=== PATIENT | female | born 1935 | race African-American/Black ===

== ENCOUNTER 2017-05-12 12:24 | Emergency (ER) | payer MEDICARE, MEDICAID ==
[~2017-05-12] VITALS: Ht 177.8 cm; Wt 102.6 kg
[2017-05-12 12:30] VITALS: BP 148/68
[2017-05-12] MEDS ORDERED: IBUPROFEN 600 MG TABLET PO ONE ×2 (12:53→13:00)
[2017-05-12] MEDS ORDERED: AMOX/CLAVULANATE 250 MG TABLET ONE (12:53)
[2017-05-12] MEDS ORDERED: AMOXICILLIN TRIHYDRATE 250 MG CAPSULE PO ONE (13:00)
--- NOTE | 2017-05-12 13:06 | NUR ---
Ambulnz eta [id number]
== END 2017-05-12 14:10 | disposition home or self-care (01) ==
LOC: ER 12:28
DX: H66.92 Otitis media, unspecified, left ear (principal); I10 Essential (primary) hypertension; I25.10 Atherosclerotic heart disease of native coronary artery without angina pectoris; M19.90 Unspecified osteoarthritis, unspecified site
CPT/HCPCS: 99283; A4606; Z7610

== ENCOUNTER 2019-04-02 13:12 | Inpatient (IN) | payer MEDICARE, MEDICAID ==
[~2019-04-02] VITALS: Ht 177.8 cm; Wt 86.2 kg
[2019-04-02 02:00] VITALS: BP 114/56
[2019-04-02] MEDS ORDERED: CLINDAMYCIN HCL 150 MG CAPSULE PO ONE ×2 (14:57→15:00)
[2019-04-02] MEDS ORDERED: HYDROCODONE/APAP 5/325MG 1 EACH TABLET ONE ×2 (14:58→17:23)
[2019-04-02] MEDS ORDERED: ONDANSETRON 4 MG TAB.RAPDIS ONE (14:58)
[2019-04-02] MEDS ORDERED: ONDANSETRON 4 MG TAB.RAPDIS SL ONE (15:00)
[2019-04-02] MEDS ORDERED: HYDROCODONE/APAP 5/325MG 1 EACH TABLET PO ONE ×2 (15:00→17:30)
[2019-04-02 15:58] LABS: BASOPHILS # (AUTO) 0.1 /CMM (0.0-0.2); BASOPHILS % (AUTO) 1.3 % (0.0-2.0); HEMATOCRIT 36 % (33-45); HEMOGLOBIN 11.4 g/dL (11.5-14.8); LYMPHOCYTES # (AUTO) 1.6 /CMM (0.8-4.8); LYMPHOCYTES % (AUTO) 20.9 % (20.0-44.0); MEAN CORPUSCULAR HGB CONC 32 g/dl (31.0-36.0); MEAN CORPUSCULAR VOLUME 80 fL (82-100); MONOCYTES # (AUTO) 0.8 /CMM (0.1-1.30); MONOCYTES % (AUTO) 11.1 % (2.0-12.0); NEUTROPHILS # (AUTO) 4.8 /CMM (1.8-8.9); NEUTROPHILS % (AUTO) 63.7 % (43.0-81.0); PLATELET COUNT (AUTO) 226 /CMM (150-450); WHITE BLOOD COUNT (AUTO) 7.6 K/uL (4.3-11.0)
[2019-04-02 16:08] LABS: CALCIUM, SERUM 9.1 mg/dL (8.5-10.1); CARBON DIOXIDE 30 mmol/L (21-32); CHLORIDE 98 mmol/L (98-107); CREATININE 2.1 mg/dL (0.6-1.3); GLUCOSE 98 mg/dL (74-106); POTASSIUM 5.2 mmol/L (3.5-5.1); SODIUM SERUM 132 mmol/L (136-145); UREA NITROGEN, BLOOD 35 mg/dL (7-18)
[2019-04-02 16:21] LABS: B-TYPE NATRIURETIC PEPTIDE 339 PG/ML (0-125)
[2019-04-02 18:00] VITALS: BP 138/58
[2019-04-02] MEDS ORDERED: RISP0.5T20 PO (18:31)
[2019-04-02] MEDS ORDERED: LACT10SO PO (18:31)
[2019-04-02] MEDS ORDERED: OXYB10TA2 PO (18:31)
[2019-04-02] MEDS ORDERED: BRIM5DRO3 EACHEYE (18:31)
[2019-04-02] MEDS ORDERED: METR-147 PO (18:31)
[2019-04-02] MEDS ORDERED: ATOR20TA PO (18:31)
[2019-04-02] MEDS ORDERED: DOCU250C88 PO (18:31)
[2019-04-02] MEDS ORDERED: FURO20TA4 PO (18:31)
[2019-04-02] MEDS ORDERED: CLOP75TA15 PO (18:31)
[2019-04-02] MEDS ORDERED: ONDA4TAB11 SL (18:31)
[2019-04-02] MEDS ORDERED: GABA-532 PO (18:31)
[2019-04-02] MEDS ORDERED: ISOS30TA6 PO (18:31)
[2019-04-02] MEDS ORDERED: MIRT15TA7 PO (18:31)
[2019-04-02] MEDS ORDERED: [UNRECOGNIZED DRUG - CODE] PO (18:31)
[2019-04-02] MEDS ORDERED: CARB15DR OP (18:31)
[2019-04-02] MEDS ORDERED: SPIR50TA5 PO (18:31)
[2019-04-02] MEDS ORDERED: METO200T49 PO (18:31)
[2019-04-02] MEDS ORDERED: LORA-259 PO (18:31)
[2019-04-02] MEDS ORDERED: LOSA100T31 PO (18:31)
[2019-04-02] MEDS ORDERED: TRAM50TA2 PO (18:31)
[2019-04-02] MEDS ORDERED: MAG-154 PO (18:31)
[2019-04-02] MEDS ORDERED: PANT40TA4 PO (18:31)
[2019-04-02 20:00] VITALS: BP 114/56
[2019-04-02] MEDS ORDERED: WARFARIN SODIUM 5 MG TABLET PO ONE (20:00)
[2019-04-02] MEDS: ENOXAPARIN SODIUM 100 MG/ML DISP.SYRIN SQ SCH (22:10)
[2019-04-03 04:00] VITALS: BP 125/78
[2019-04-03] MEDS ORDERED: LACTULOSE 10 G/15 ML UDC (PYXIS) PO PRN (08:30)
[2019-04-03] MEDS ORDERED: LORAZEPAM 1 MG TABLET PO PRN (08:30)
[2019-04-03] MEDS ORDERED: GUAIFENESIN/D-METHORPHAN HB 5 ML UDC PO PRN (08:30)
[2019-04-03] MEDS ORDERED: MAG HYDROX/AL HYDROX/SIMETH 30 ML UDC PO PRN (08:30)
[2019-04-03] MEDS ORDERED: TRAMADOL HCL 50 MG TABLET PO PRN (08:30)
[2019-04-03] MEDS: PANTOPRAZOLE 40 MG TABLET.DR PO SCH (08:35)
[2019-04-03] MEDS: DOCUSATE SODIUM 250 MG CAPSULE PO SCH (08:36)
[2019-04-03] MEDS: FUROSEMIDE 20 MG TABLET PO SCH (08:36)
[2019-04-03] MEDS: OXYBUTYNIN CHLORIDE ER 5 MG TAB PO SCH (08:36)
[2019-04-03] MEDS: SPIRONOLACTONE 25 MG TABLET PO SCH ×2 (08:36→16:15)
[2019-04-03] MEDS: ISOSORBIDE MONONITRATE (30MG) 30 MG TAB.SR.24H PO SCH (08:46)
[2019-04-03] MEDS: METOPROLOL SUCCINATE 50 MG TAB.SR.24H PO SCH (08:47)
[2019-04-03] MEDS: LOSARTAN POTASSIUM 50 MG TABLET PO SCH (08:47)
[2019-04-03] MEDS: GABAPENTIN 100 MG CAPSULE PO SCH ×3 (08:47→16:14)
[2019-04-03] MEDS ORDERED: CLOPIDOGREL BISULFATE 75 MG TABLET PO SCH (09:00)
[2019-04-03] MEDS: BRIMONIDINE TARTRATE OPHT SOLN 5 ML BOTTLE EACHEYE SCH ×2 (09:18→16:14)
[2019-04-03] MEDS: CARBOXYMETHYLCELLULOSE SODIUM 0.4 ML DROPERETTE EACHEYE SCH (09:19)
[2019-04-03 12:00] VITALS: BP 118/64
[2019-04-03 20:00] VITALS: BP 129/65
[2019-04-03] MEDS ORDERED: OXYB5TAB4 PO (20:34)
[2019-04-03] MEDS ORDERED: RISP0.5T20 PO (20:34)
[2019-04-03] MEDS ORDERED: MIRT15TA7 PO (20:34)
[2019-04-03] MEDS: ENOXAPARIN SODIUM 100 MG/ML DISP.SYRIN SQ SCH (21:05)
[2019-04-03] MEDS: ATORVASTATIN 10 MG TABLET PO SCH (21:07)
[2019-04-03] MEDS: risperiDONE 0.25 MG TABLET PO SCH (21:07)
[2019-04-03] MEDS: MIRTAZAPINE 15 MG TABLET PO SCH (21:07)
[2019-04-03] MEDS ORDERED: TRAMADOL HCL 50 MG TABLET PO ONE (22:00)
[2019-04-04 04:00] VITALS: BP 121/50
[2019-04-04] MEDS: TRAMADOL HCL 50 MG TABLET PO PRN (04:44)
[2019-04-04 08:00] VITALS: BP 133/75
[2019-04-04] MEDS: risperiDONE 0.25 MG TABLET PO SCH ×2 (08:48→16:33)
[2019-04-04] MEDS: FUROSEMIDE 20 MG TABLET PO SCH (08:48)
[2019-04-04] MEDS: GABAPENTIN 100 MG CAPSULE PO SCH ×3 (08:48→16:36)
[2019-04-04] MEDS: OXYBUTYNIN CHLORIDE ER 5 MG TAB PO SCH (08:49)
[2019-04-04] MEDS: PANTOPRAZOLE 40 MG TABLET.DR PO SCH (08:49)
[2019-04-04] MEDS: DOCUSATE SODIUM 250 MG CAPSULE PO SCH (08:49)
[2019-04-04] MEDS: ISOSORBIDE MONONITRATE (30MG) 30 MG TAB.SR.24H PO SCH (08:50)
[2019-04-04] MEDS: METOPROLOL SUCCINATE 50 MG TAB.SR.24H PO SCH (08:50)
[2019-04-04] MEDS: LOSARTAN POTASSIUM 50 MG TABLET PO SCH (08:51)
[2019-04-04] MEDS: SPIRONOLACTONE 25 MG TABLET PO SCH ×2 (08:51→16:33)
[2019-04-04] MEDS: BRIMONIDINE TARTRATE OPHT SOLN 5 ML BOTTLE EACHEYE SCH ×2 (08:52→16:33)
[2019-04-04] MEDS: CARBOXYMETHYLCELLULOSE SODIUM 0.4 ML DROPERETTE EACHEYE SCH (08:52)
[2019-04-04] MEDS: CEFAZOLIN 1 GM in IV D5W 50 ML IV SCH ×2 (09:00→17:23)
[2019-04-04] MEDS: CLOTRIMAZOLE 1% 15 GM TUBE TP SCH ×2 (10:51→16:34)
[2019-04-04 12:00] VITALS: BP 139/59
[2019-04-04] MEDS: Z GUARD REMEDY 2 OZ OINT TP SCH (14:05)
[2019-04-04] MEDS: MUPIROCIN OINT 2% 22 GM TUBE TP SCH ×2 (14:06→20:10)
[2019-04-04 16:00] VITALS: BP 139/59
[2019-04-04] MEDS: RIVAROXABAN 15 MG TABLET PO SCH (16:34)
[2019-04-04] MEDS ORDERED: WARFARIN SODIUM 5 MG TABLET PO SCH (17:00)
[2019-04-04] MEDS ORDERED: FEE PK DOSING 1 MIN EA MC ONE (18:49)
[2019-04-04] MEDS ORDERED: VANCOMYCIN 1.25 GM in IV D5W 250 ML IV ONE (19:00)
[2019-04-04 20:00] VITALS: BP 148/72
[2019-04-04] MEDS: Z GUARD REMEDY 2 OZ OINT TP PRN (20:10)
[2019-04-04 20:40] LABS: BASOPHILS # (AUTO) 0.1 /CMM (0.0-0.2); EOSINOPHILS % (AUTO) 2.9 % (0.0-6.0); HEMATOCRIT 36 % (33-45); HEMOGLOBIN 11.5 g/dL (11.5-14.8); LYMPHOCYTES # (AUTO) 1.1 /CMM (0.8-4.8); LYMPHOCYTES % (AUTO) 15.5 % (20.0-44.0); MEAN CORPUSCULAR HGB CONC 32 g/dl (31.0-36.0); MEAN CORPUSCULAR VOLUME 79 fL (82-100); MONOCYTES # (AUTO) 0.7 /CMM (0.1-1.30); MONOCYTES % (AUTO) 10.2 % (2.0-12.0); NEUTROPHILS % (AUTO) 70.4 % (43.0-81.0); PLATELET COUNT (AUTO) 213 /CMM (150-450); RED BLOOD CELL COUNT(AUTO) 4.54 MIL/uL (4.0-5.2)
[2019-04-04 20:44] LABS: CALCIUM, SERUM 8.9 mg/dL (8.5-10.1); CARBON DIOXIDE 32 mmol/L (21-32); CHLORIDE 102 mmol/L (98-107); CREATININE 1.7 mg/dL (0.6-1.3); GLUCOSE 108 mg/dL (74-106); POTASSIUM 5.6 mmol/L (3.5-5.1); SODIUM SERUM 137 mmol/L (136-145); UREA NITROGEN, BLOOD 33 mg/dL (7-18)
[2019-04-04] MEDS: ATORVASTATIN 10 MG TABLET PO SCH (22:33)
[2019-04-04] MEDS: MIRTAZAPINE 15 MG TABLET PO SCH (22:34)
[2019-04-05] MEDS: CEFAZOLIN 1 GM in IV D5W 50 ML IV SCH ×3 (00:03→16:37)
[2019-04-05 04:00] VITALS: BP 131/71
[2019-04-05 08:00] VITALS: BP 140/72
[2019-04-05] MEDS: BRIMONIDINE TARTRATE OPHT SOLN 5 ML BOTTLE EACHEYE SCH ×2 (08:33→16:37)
[2019-04-05] MEDS: FUROSEMIDE 20 MG TABLET PO SCH (08:34)
[2019-04-05] MEDS: GABAPENTIN 100 MG CAPSULE PO SCH ×3 (08:34→16:37)
[2019-04-05] MEDS: SPIRONOLACTONE 25 MG TABLET PO SCH ×2 (08:34→16:37)
[2019-04-05] MEDS: LOSARTAN POTASSIUM 50 MG TABLET PO SCH (08:35)
[2019-04-05] MEDS: DOCUSATE SODIUM 250 MG CAPSULE PO SCH (08:35)
[2019-04-05] MEDS: ISOSORBIDE MONONITRATE (30MG) 30 MG TAB.SR.24H PO SCH (08:35)
[2019-04-05] MEDS: PANTOPRAZOLE 40 MG TABLET.DR PO SCH (08:35)
[2019-04-05] MEDS: risperiDONE 0.25 MG TABLET PO SCH ×2 (08:35→16:38)
[2019-04-05] MEDS: OXYBUTYNIN CHLORIDE ER 5 MG TAB PO SCH (08:35)
[2019-04-05] MEDS: METOPROLOL SUCCINATE 50 MG TAB.SR.24H PO SCH (08:35)
[2019-04-05] MEDS: MUPIROCIN OINT 2% 22 GM TUBE TP SCH ×2 (08:36→20:35)
[2019-04-05] MEDS: Z GUARD REMEDY 2 OZ OINT TP SCH (08:37)
[2019-04-05] MEDS: CLOTRIMAZOLE 1% 15 GM TUBE TP SCH ×2 (08:37→16:37)
[2019-04-05] MEDS: CARBOXYMETHYLCELLULOSE SODIUM 0.4 ML DROPERETTE EACHEYE SCH (08:42)
[2019-04-05] MEDS: RIVAROXABAN 15 MG TABLET PO SCH ×2 (08:46→16:39)
[2019-04-05 12:00] VITALS: BP 128/69
[2019-04-05 15:33] LABS: CALCIUM, SERUM 8.9 mg/dL (8.5-10.1); CARBON DIOXIDE 31 mmol/L (21-32); CHLORIDE 102 mmol/L (98-107); CREATININE 1.6 mg/dL (0.6-1.3); GLUCOSE 122 mg/dL (74-106); POTASSIUM 5.1 mmol/L (3.5-5.1); SODIUM SERUM 136 mmol/L (136-145); UREA NITROGEN, BLOOD 30 mg/dL (7-18)
[2019-04-05 20:00] VITALS: BP 114/55
[2019-04-05] MEDS: MIRTAZAPINE 15 MG TABLET PO SCH (21:08)
[2019-04-05] MEDS: ATORVASTATIN 10 MG TABLET PO SCH (21:09)
[2019-04-06] MEDS: CEFAZOLIN 1 GM in IV D5W 50 ML IV SCH ×3 (00:04→16:49)
[2019-04-06 04:00] VITALS: BP 136/58
[2019-04-06 07:48] LABS: CALCIUM, SERUM 9.3 mg/dL (8.5-10.1); CARBON DIOXIDE 26 mmol/L (21-32); CHLORIDE 102 mmol/L (98-107); CREATININE 1.4 mg/dL (0.6-1.3); GLUCOSE 100 mg/dL (74-106); POTASSIUM 4.7 mmol/L (3.5-5.1); SODIUM SERUM 136 mmol/L (136-145); UREA NITROGEN, BLOOD 26 mg/dL (7-18)
[2019-04-06 08:00] VITALS: BP 146/75
[2019-04-06] MEDS ORDERED: VANCOMYCIN 1.25 GM in IV D5W 250 ML IV SCH (08:00)
[2019-04-06] MEDS: GABAPENTIN 100 MG CAPSULE PO SCH ×3 (08:45→16:21)
[2019-04-06] MEDS: LOSARTAN POTASSIUM 50 MG TABLET PO SCH (08:45)
[2019-04-06] MEDS: DOCUSATE SODIUM 250 MG CAPSULE PO SCH (08:45)
[2019-04-06] MEDS: RIVAROXABAN 15 MG TABLET PO SCH ×2 (08:46→16:20)
[2019-04-06] MEDS: OXYBUTYNIN CHLORIDE ER 5 MG TAB PO SCH (08:47)
[2019-04-06] MEDS: ISOSORBIDE MONONITRATE (30MG) 30 MG TAB.SR.24H PO SCH (08:47)
[2019-04-06] MEDS: PANTOPRAZOLE 40 MG TABLET.DR PO SCH (08:47)
[2019-04-06] MEDS: risperiDONE 0.25 MG TABLET PO SCH ×2 (08:47→16:21)
[2019-04-06] MEDS: SPIRONOLACTONE 25 MG TABLET PO SCH ×2 (08:47→16:19)
[2019-04-06] MEDS: FUROSEMIDE 20 MG TABLET PO SCH (08:48)
[2019-04-06] MEDS: METOPROLOL SUCCINATE 50 MG TAB.SR.24H PO SCH (08:48)
[2019-04-06] MEDS: MUPIROCIN OINT 2% 22 GM TUBE TP SCH ×2 (08:54→21:23)
[2019-04-06] MEDS: CLOTRIMAZOLE 1% 15 GM TUBE TP SCH ×2 (08:54→16:23)
[2019-04-06] MEDS: BRIMONIDINE TARTRATE OPHT SOLN 5 ML BOTTLE EACHEYE SCH ×2 (08:56→16:22)
[2019-04-06] MEDS: Z GUARD REMEDY 2 OZ OINT TP PRN ×3 (08:57→09:15)
[2019-04-06] MEDS: CARBOXYMETHYLCELLULOSE SODIUM 0.4 ML DROPERETTE EACHEYE SCH (09:51)
[2019-04-06] MEDS: Z GUARD REMEDY 2 OZ OINT TP SCH (09:51)
[2019-04-06 14:00] VITALS: BP 138/72
[2019-04-06] MEDS: TRAMADOL HCL 50 MG TABLET PO PRN (15:28)
[2019-04-06 16:00] VITALS: BP 125/71
[2019-04-06 20:00] VITALS: BP 136/69
[2019-04-06] MEDS: MIRTAZAPINE 15 MG TABLET PO SCH (21:23)
[2019-04-06] MEDS: ATORVASTATIN 10 MG TABLET PO SCH (21:23)
[2019-04-07] MEDS: TRAMADOL HCL 50 MG TABLET PO PRN ×2 (02:14→14:03)
[2019-04-07] MEDS: CEFAZOLIN 1 GM in IV D5W 50 ML IV SCH ×2 (02:14→08:55)
[2019-04-07 04:00] VITALS: BP 143/61
[2019-04-07 07:02] LABS: CALCIUM, SERUM 9.1 mg/dL (8.5-10.1); CARBON DIOXIDE 32 mmol/L (21-32); CHLORIDE 104 mmol/L (98-107); CREATININE 1.5 mg/dL (0.6-1.3); GLUCOSE 103 mg/dL (74-106); POTASSIUM 4.6 mmol/L (3.5-5.1); SODIUM SERUM 140 mmol/L (136-145); UREA NITROGEN, BLOOD 26 mg/dL (7-18)
[2019-04-07 08:00] VITALS: BP 126/72
[2019-04-07] MEDS: GABAPENTIN 100 MG CAPSULE PO SCH ×2 (08:06→13:38)
[2019-04-07] MEDS: FUROSEMIDE 20 MG TABLET PO SCH (08:06)
[2019-04-07] MEDS: OXYBUTYNIN CHLORIDE ER 5 MG TAB PO SCH (08:06)
[2019-04-07] MEDS: DOCUSATE SODIUM 250 MG CAPSULE PO SCH (08:06)
[2019-04-07] MEDS: SPIRONOLACTONE 25 MG TABLET PO SCH (08:12)
[2019-04-07] MEDS: PANTOPRAZOLE 40 MG TABLET.DR PO SCH (08:12)
[2019-04-07] MEDS: risperiDONE 0.25 MG TABLET PO SCH (08:12)
[2019-04-07] MEDS: BRIMONIDINE TARTRATE OPHT SOLN 5 ML BOTTLE EACHEYE SCH (08:16)
[2019-04-07] MEDS: ISOSORBIDE MONONITRATE (30MG) 30 MG TAB.SR.24H PO SCH (08:50)
[2019-04-07] MEDS: METOPROLOL SUCCINATE 50 MG TAB.SR.24H PO SCH (08:50)
[2019-04-07] MEDS: LOSARTAN POTASSIUM 50 MG TABLET PO SCH (08:51)
[2019-04-07] MEDS: RIVAROXABAN 15 MG TABLET PO SCH (08:51)
[2019-04-07] MEDS: CLOTRIMAZOLE 1% 15 GM TUBE TP SCH (08:54)
[2019-04-07] MEDS: Z GUARD REMEDY 2 OZ OINT TP SCH (08:54)
[2019-04-07] MEDS: MUPIROCIN OINT 2% 22 GM TUBE TP SCH (08:54)
[2019-04-07] MEDS ORDERED: VANCOMYCIN 1.25 GM in IV D5W 250 ML IV SCH (10:00)
[2019-04-07 12:00] VITALS: BP 136/81
[2019-04-07] MEDS ORDERED: INFLUENZA VACCINE 2019-20 0.5 ML DISP.SYRIN IM ONE (14:00)
[2019-04-08] MEDS ORDERED: POLYVINYL ALCOHOL/POVIDONE 0.4 ML DROPERETTE EACHEYE SCH (09:00)
== END 2019-04-07 16:30 | DRG 300 ==
LOC: ER 13:16 → MEDSG1 17:18
PROVIDERS: ADMIT Internal Medicine; ATTEND Internal Medicine
PROC: 05H633Z Insertion of Infusion Device into Left Subclavian Vein, Percutaneous Approach (ICD-10-PCS; principal; 2019-04-04)
DX: I82.432 Acute embolism and thrombosis of left popliteal vein (principal); I13.0 Hypertensive heart and chronic kidney disease with heart failure and stage 1 through stage 4 chronic kidney disease, or unspecified chronic kidney disease; L03.116 Cellulitis of left lower limb; I50.22 Chronic systolic (congestive) heart failure; I25.10 Atherosclerotic heart disease of native coronary artery without angina pectoris; E78.5 Hyperlipidemia, unspecified; L03.032 Cellulitis of left toe; E66.01 Morbid (severe) obesity due to excess calories; E87.5 Hyperkalemia; M06.9 Rheumatoid arthritis, unspecified; M19.90 Unspecified osteoarthritis, unspecified site; M20.42 Other hammer toe(s) (acquired), left foot; Z95.5 Presence of coronary angioplasty implant and graft; Z68.27 Body mass index [BMI] 27.0-27.9, adult; F41.9 Anxiety disorder, unspecified; M79.672 Pain in left foot; N18.3 Chronic kidney disease, stage 3 (moderate); L97.529 Non-pressure chronic ulcer of other part of left foot with unspecified severity; M81.0 Age-related osteoporosis without current pathological fracture
CPT/HCPCS: 36415; 71045-TC; 73630-TC; 80048-TC; 80202-TC; 83880; 84132-TC; 85025-TC; 85610-TC; 85730-TC; 87081-TC; 93970-TC; G0378; J0690; J1650; J3370; J7030; J7040; J7060; Q0162; Q2036

== ENCOUNTER 2023-05-23 20:15 | Inpatient (IN) | payer MEDICARE, OTHER ==
[~2023-05-23] VITALS: Ht 175.3 cm; Wt 91.7 kg
[~2023-05-23 20:15] MED LIST: ATOR20TA PO; BRIM5DRO3 EACHEYE; CARB15DR EACHEYE; CLOP75TA15 PO; DOCU250C21 PO; FURO20TA4 PO; GABA-532 PO; ISOS30TA86 PO; LACT10SO3 PO; LORA-259 PO; LOSA100T31 PO; MAG-154 PO; METO200T49 PO; MIRT-90 PO; OXYB-58 PO; PANT40TA49 PO; RISP0.5T65 PO; SPIR50TA5 PO; TRAM50TA2 PO; [UNRECOGNIZED DRUG - CODE] PO
[2023-05-23] MEDS ORDERED: ACETAMINOPHEN ES 500 MG TABLET ONE (20:44)
[2023-05-23] MEDS: IV NS 0.9% 500 ML BAG IV ONE (20:53)
[2023-05-23] MEDS: ACETAMINOPHEN ES 500 MG TABLET PO ONE (20:53)
[2023-05-23 21:08] LABS: BASOPHILS # (AUTO) 0.1 K/uL (0.0-0.2); BASOPHILS % (AUTO) 1.1 % (0.0-2.0); EOSINOPHILS # (AUTO) 0.2 K/uL (0.0-0.7); EOSINOPHILS % (AUTO) 2.7 % (0.0-6.0); HEMATOCRIT 38 % (33-45); LYMPHOCYTES # (AUTO) 1.9 K/uL (0.8-4.8); LYMPHOCYTES % (AUTO) 27.2 % (20.0-44.0); MEAN CORPUSCULAR HEMOGLOBIN 27 PG (26.0-33.0); MEAN CORPUSCULAR HGB CONC 32 g/dl (31.0-36.0); MEAN CORPUSCULAR VOLUME 84 fL (82-100); MONOCYTES # (AUTO) 0.7 K/uL (0.1-1.30); MONOCYTES % (AUTO) 10.4 % (2.0-12.0); NEUTROPHILS % (AUTO) 58.6 % (43.0-81.0); PLATELET COUNT (AUTO) 196 K/uL (150-450); RED CELL DISTRIBUTION WIDTH 14.8 % (11.5-15.0); WHITE BLOOD COUNT (AUTO) 6.8 K/uL (4.3-11.0)
[2023-05-23 21:22] LABS: CALCIUM, SERUM 8.9 mg/dL (8.5-10.1); CARBON DIOXIDE 27 mmol/L (21-32); CHLORIDE 104 mmol/L (98-107); CREATININE 2.7 mg/dL (0.6-1.3); GLUCOSE 79 mg/dL (74-106); POTASSIUM 4.4 mmol/L (3.5-5.1); SODIUM SERUM 136 mmol/L (136-145); UREA NITROGEN, BLOOD 69 mg/dL (7-18)
[2023-05-23 21:29] LABS: ALANINE AMINOTRANSFERASE 12 U/L (12-78); ALBUMIN 3.4 g/dL (3.4-5.0); ALKALINE PHOSPHATASE 99 U/L (46-116); ASPARTATE AMINOTRANSFERASE 11 U/L (15-37); BILIRUBIN,TOTAL 0.2 mg/dL (0.2-1.0); TOTAL PROTEIN, SERUM 7.5 g/dL (6.4-8.2)
[2023-05-23 22:28] LABS: APPEARANCE,URINE SLIGHTLY CLOUDY (CLEAR); BILIRUBIN,URINE NEGATIVE (NEGATIVE); BLOOD, URINE NEGATIVE Ery/uL (NEGATIVE); COLOR,URINE YELLOW (YELLOW); KETONES,URINE NEGATIVE (NEGATIVE); LEUKOCYTE ESTERASE ,URINE 1+ (NEGATIVE); NITRITE, URINE NEGATIVE (NEGATIVE); PH,URINE 5.5 (5.0-8.0); PROTEIN,URINE NEGATIVE (NEGATIVE); UGLUCOSE TRACE mg/dL (NEGATIVE); UROBILINOGEN,URINE 0.2 EU/dL (0.2)
[2023-05-23 22:32] LABS: ADD URINE CULTURE YES; BACTERIA,URINE Few /HPF (None Seen); RBC,URINE 0-2 /HPF (0-2); SQUAMOUS EPITHELIAL CELL,UR Rare /HPF (None Seen)
[2023-05-23] MEDS: CEFTRIAXONE 1GM BAG (ER ONLY) 50 ML IV ONE (23:43)
[2023-05-24] MEDS ORDERED: Medication Not On Formulary EA (Lactulose (Duphalac) 30 ML) PO SCH
[2023-05-24] MEDS ORDERED: ZOLPIDEM TARTRATE 5 MG TABLET PO PRN
[2023-05-24] MEDS ORDERED: Z GUARD REMEDY 4 OZ OINT TP PRN
[2023-05-24] MEDS ORDERED: ONDANSETRON HCL/PF 4 MG/2 ML VIAL IVP PRN
[2023-05-24] MEDS ORDERED: MAG HYDROX/AL HYDROX/SIMETH 30 ML UDC PO PRN
[2023-05-24] MEDS ORDERED: BENZONATATE 100 MG CAPSULE PO PRN
[2023-05-24 03:08] VITALS: BP 145/75; TEMP 97.9; O2SAT 98
[2023-05-24] MEDS: IV NS 0.9% 1,000 ML IV PRN (03:32)
[2023-05-24 04:00] VITALS: BP 127/69; TEMP 97.6; O2SAT 96
[2023-05-24 07:26] LABS: BASOPHILS # (AUTO) 0.1 K/uL (0.0-0.2); BASOPHILS % (AUTO) 0.8 % (0.0-2.0); EOSINOPHILS # (AUTO) 0.2 K/uL (0.0-0.7); EOSINOPHILS % (AUTO) 2.5 % (0.0-6.0); HEMATOCRIT 35 % (33-45); HEMOGLOBIN 11.3 g/dL (11.5-14.8); LYMPHOCYTES # (AUTO) 1.4 K/uL (0.8-4.8); LYMPHOCYTES % (AUTO) 19.4 % (20.0-44.0); MEAN CORPUSCULAR HEMOGLOBIN 27 PG (26.0-33.0); MEAN CORPUSCULAR HGB CONC 32 g/dl (31.0-36.0); MEAN CORPUSCULAR VOLUME 83 fL (82-100); MONOCYTES # (AUTO) 0.7 K/uL (0.1-1.30); MONOCYTES % (AUTO) 10.1 % (2.0-12.0); NEUTROPHILS # (AUTO) 4.8 K/uL (1.8-8.9); NEUTROPHILS % (AUTO) 67.2 % (43.0-81.0); PLATELET COUNT (AUTO) 180 K/uL (150-450); RED BLOOD CELL COUNT(AUTO) 4.25 MIL/uL (4.0-5.2); RED CELL DISTRIBUTION WIDTH 14.7 % (11.5-15.0); WHITE BLOOD COUNT (AUTO) 7.2 K/uL (4.3-11.0)
[2023-05-24 07:41] LABS: CALCIUM, SERUM 8.8 mg/dL (8.5-10.1); CARBON DIOXIDE 25 mmol/L (21-32); CHLORIDE 109 mmol/L (98-107); CREATININE 2.5 mg/dL (0.6-1.3); GLUCOSE 94 mg/dL (74-106); MAGNESIUM 1.6 mg/dL (1.8-2.4); PHOSPHORUS 3.7 mg/dL (2.5-4.9); POTASSIUM 3.9 mmol/L (3.5-5.1); SODIUM SERUM 141 mmol/L (136-145); UREA NITROGEN, BLOOD 68 mg/dL (7-18)
[2023-05-24 08:00] VITALS: BP 125/64; TEMP 97.6; O2SAT 98
[2023-05-24] MEDS: risperiDONE 0.25 MG TABLET PO SCH (08:31)
[2023-05-24] MEDS: DOCUSATE SODIUM 250 MG CAPSULE PO SCH (08:31)
[2023-05-24] MEDS: PANTOPRAZOLE 40 MG TABLET.DR PO SCH (08:32)
[2023-05-24] MEDS: GABAPENTIN 100 MG CAPSULE PO SCH (08:32)
[2023-05-24] MEDS: CLOPIDOGREL BISULFATE 75 MG TABLET PO SCH (08:32)
[2023-05-24] MEDS: ISOSORBIDE MONONITRATE (30MG) 30 MG TAB.SR.24H PO SCH (08:32)
[2023-05-24] MEDS: METOPROLOL SUCCINATE 50 MG TAB.SR.24H PO SCH (08:33)
[2023-05-24] MEDS ORDERED: APIX2.5T PO (08:40)
[2023-05-24] MEDS ORDERED: KETO15CR2 TP (08:40)
[2023-05-24] MEDS ORDERED: MIRT-91 PO (08:40)
[2023-05-24] MEDS ORDERED: OLME20TA23 PO (08:40)
[2023-05-24] MEDS ORDERED: EMPA10TA PO (08:40)
[2023-05-24] MEDS ORDERED: SERT50TA PO (08:40)
[2023-05-24] MEDS ORDERED: DEEP SEA 0.65% BNOSTRILS (08:40)
[2023-05-24] MEDS ORDERED: RISP0.5T65 PO (08:40)
[2023-05-24] MEDS ORDERED: ACET-868 PO (08:40)
[2023-05-24] MEDS ORDERED: DIPH1TAB PO (08:40)
[2023-05-24] MEDS ORDERED: SODI10PO PO (08:40)
[2023-05-24] MEDS: MAGNESIUM OXIDE 400 MG TABLET PO ONE (10:20)
[2023-05-24 16:00] VITALS: BP 109/63; TEMP 97.7; O2SAT 96
[2023-05-24] MEDS: BRIMONIDINE TARTRATE OPHT SOLN 5 ML BOTTLE EACHEYE SCH (17:08)
[2023-05-24] MEDS: POLYVINYL ALCOHOL 15 ML BOTTLE OP SCH (17:25)
[2023-05-24 20:00] VITALS: BP 102/61; TEMP 97.7; O2SAT 98
[2023-05-24] MEDS: ATORVASTATIN 10 MG TABLET PO SCH (21:19)
[2023-05-24] MEDS: MIRTAZAPINE 15 MG TABLET PO SCH (21:19)
[2023-05-24] MEDS: CEFTRIAXONE 1 G in IV D5W 50 ML IV SCH (21:19)
[2023-05-24] MEDS: MAGNESIUM HYDROXIDE 30 ML UDC PO PRN (21:24)
[2023-05-25 04:00] VITALS: BP 114/60; TEMP 98.5; O2SAT 98
[2023-05-25 07:06] LABS: BASOPHILS # (AUTO) 0.1 K/uL (0.0-0.2); BASOPHILS % (AUTO) 0.9 % (0.0-2.0); EOSINOPHILS # (AUTO) 0.2 K/uL (0.0-0.7); EOSINOPHILS % (AUTO) 3.5 % (0.0-6.0); HEMATOCRIT 32 % (33-45); HEMOGLOBIN 10.5 g/dL (11.5-14.8); LYMPHOCYTES # (AUTO) 1.7 K/uL (0.8-4.8); LYMPHOCYTES % (AUTO) 25.1 % (20.0-44.0); MEAN CORPUSCULAR HEMOGLOBIN 27 PG (26.0-33.0); MEAN CORPUSCULAR HGB CONC 33 g/dl (31.0-36.0); MEAN CORPUSCULAR VOLUME 83 fL (82-100); MONOCYTES # (AUTO) 0.8 K/uL (0.1-1.30); MONOCYTES % (AUTO) 11.2 % (2.0-12.0); NEUTROPHILS % (AUTO) 59.3 % (43.0-81.0); PLATELET COUNT (AUTO) 167 K/uL (150-450); RED BLOOD CELL COUNT(AUTO) 3.84 MIL/uL (4.0-5.2); RED CELL DISTRIBUTION WIDTH 14.6 % (11.5-15.0); WHITE BLOOD COUNT (AUTO) 6.7 K/uL (4.3-11.0)
[2023-05-25 08:00] VITALS: BP 123/60; TEMP 98.4; O2SAT 91
[2023-05-25 08:06] LABS: ALANINE AMINOTRANSFERASE 13 U/L (12-78); ALBUMIN 2.7 g/dL (3.4-5.0); ALKALINE PHOSPHATASE 82 U/L (46-116); ASPARTATE AMINOTRANSFERASE 10 U/L (15-37); BILIRUBIN,TOTAL 0.2 mg/dL (0.2-1.0); CALCIUM, SERUM 8.7 mg/dL (8.5-10.1); CARBON DIOXIDE 26 mmol/L (21-32); CHLORIDE 110 mmol/L (98-107); CREATININE 2.5 mg/dL (0.6-1.3); GLUCOSE 87 mg/dL (74-106); MAGNESIUM 1.8 mg/dL (1.8-2.4); PHOSPHORUS 3.5 mg/dL (2.5-4.9); POTASSIUM 4.5 mmol/L (3.5-5.1); SODIUM SERUM 141 mmol/L (136-145); TOTAL PROTEIN, SERUM 6.1 g/dL (6.4-8.2); UREA NITROGEN, BLOOD 61 mg/dL (7-18)
[2023-05-25 08:09] LABS: CREATINE KINASE, TOTAL 47 U/L (26-192)
[2023-05-25] MEDS: ACETAMINOPHEN 325 MG TABLET PO PRN (16:30)
[2023-05-25 18:16] VITALS: BP 104/59; TEMP 98.2; O2SAT 95
[2023-05-26 04:00] VITALS: BP 128/75; TEMP 98.5; O2SAT 97
[2023-05-26 06:11] LABS: PTH, INTACT 67 pg/mL (15-65)
[2023-05-26 06:52] LABS: BASOPHILS # (AUTO) 0.1 K/uL (0.0-0.2); BASOPHILS % (AUTO) 0.8 % (0.0-2.0); EOSINOPHILS # (AUTO) 0.2 K/uL (0.0-0.7); EOSINOPHILS % (AUTO) 2.7 % (0.0-6.0); HEMATOCRIT 35 % (33-45); HEMOGLOBIN 10.9 g/dL (11.5-14.8); LYMPHOCYTES # (AUTO) 1.3 K/uL (0.8-4.8); LYMPHOCYTES % (AUTO) 18.3 % (20.0-44.0); MEAN CORPUSCULAR HEMOGLOBIN 27 PG (26.0-33.0); MEAN CORPUSCULAR HGB CONC 32 g/dl (31.0-36.0); MEAN CORPUSCULAR VOLUME 85 fL (82-100); MONOCYTES % (AUTO) 13.1 % (2.0-12.0); NEUTROPHILS # (AUTO) 4.8 K/uL (1.8-8.9); NEUTROPHILS % (AUTO) 65.1 % (43.0-81.0); PLATELET COUNT (AUTO) 163 K/uL (150-450); RED BLOOD CELL COUNT(AUTO) 4.07 MIL/uL (4.0-5.2); RED CELL DISTRIBUTION WIDTH 14.9 % (11.5-15.0); WHITE BLOOD COUNT (AUTO) 7.4 K/uL (4.3-11.0)
[2023-05-26 07:05] LABS: CALCIUM, SERUM 8.9 mg/dL (8.5-10.1); CARBON DIOXIDE 30 mmol/L (21-32); CHLORIDE 107 mmol/L (98-107); CREATININE 2.3 mg/dL (0.6-1.3); GLUCOSE 88 mg/dL (74-106); MAGNESIUM 1.9 mg/dL (1.8-2.4); PHOSPHORUS 3.1 mg/dL (2.5-4.9); POTASSIUM 4.7 mmol/L (3.5-5.1); SODIUM SERUM 141 mmol/L (136-145); UREA NITROGEN, BLOOD 56 mg/dL (7-18)
[2023-05-26 08:00] VITALS: BP 146/131; TEMP 97.5; O2SAT 97
[2023-05-26] MEDS ORDERED: CEPH250C PO (13:58)
[2023-05-26 16:00] VITALS: BP 123/79; TEMP 98.1; O2SAT 96
[2023-05-28 15:08] LABS: *SPE A/G RATIO 1.1 (0.7-1.7); *SPE ALBUMIN 2.8 g/dL (2.9-4.4); *SPE ALPHA-1-GLOBULIN 0.2 g/dL (0.0-0.4); *SPE ALPHA-2-GLOBULIN 0.6 g/dL (0.4-1.0); *SPE BETA GLOBULIN 0.8 g/dL (0.7-1.3); *SPE GLOBULIN, TOTAL 2.6 g/dL (2.2-3.9); *SPE M-SPIKE Not Observed g/dL (Not Observed); *SPE PROTEIN TOTAL 5.4 g/dL (6.0-8.5); *SPEGAMMA GLOBULIN 0.9 g/dL (0.4-1.8)
== END 2023-05-26 17:20 | DRG 682 ==
LOC: ER 20:24 → MEDSG1 05-24 01:45
PROVIDERS: ADMIT Nurse Practitioner Acute Care; ATTEND Nurse Practitioner Acute Care
DX: N17.0 Acute kidney failure with tubular necrosis (principal); G93.41 Metabolic encephalopathy; I13.0 Hypertensive heart and chronic kidney disease with heart failure and stage 1 through stage 4 chronic kidney disease, or unspecified chronic kidney disease; I50.22 Chronic systolic (congestive) heart failure; N39.0 Urinary tract infection, site not specified; N18.2 Chronic kidney disease, stage 2 (mild); Z20.822 Contact with and (suspected) exposure to COVID-19; E78.5 Hyperlipidemia, unspecified; D64.9 Anemia, unspecified; E83.42 Hypomagnesemia; I25.10 Atherosclerotic heart disease of native coronary artery without angina pectoris; M89.8X9 Other specified disorders of bone, unspecified site; Z86.718 Personal history of other venous thrombosis and embolism; H11.31 Conjunctival hemorrhage, right eye; Z95.5 Presence of coronary angioplasty implant and graft; B96.1 Klebsiella pneumoniae [K. pneumoniae] as the cause of diseases classified elsewhere; H40.9 Unspecified glaucoma; F03.A0 Unspecified dementia, mild, without behavioral disturbance, psychotic disturbance, mood disturbance, and anxiety
CPT/HCPCS: 36415; 70450-TC; 71045-TC; 76770-TC; 80048-TC; 80053-TC; 80076-TC; 81001; 82550-TC; 83735-TC; 83970; 84100-TC; 84155; 84165; 85025-TC; 87040-TC; 87086-TC; A4223; G0378; J0696; J7030; J7040; J7050; J7060

== ENCOUNTER 2024-01-07 11:01 | Inpatient (IN) | payer MEDICARE, OTHER ==
[~2024-01-07] VITALS: Ht 177.8 cm; Wt 88.5 kg
[~2024-01-07 11:01] MED LIST changes: +ACET-868 PO; +APIX2.5T PO; -ATOR20TA PO; +CEPH250C PO; -CLOP75TA15 PO; +DEEP SEA 0.65% BNOSTRILS; +DIPH1TAB PO; -DOCU250C21 PO; +EMPA10TA PO; -GABA-532 PO; -ISOS30TA86 PO; +KETO15CR2 TP; -LACT10SO3 PO; -LOSA100T31 PO; -MAG-154 PO; -MIRT-90 PO; +MIRT-91 PO; +OLME20TA23 PO; +SERT50TA PO; +SODI10PO PO; -SPIR50TA5 PO; -TRAM50TA2 PO; -[UNRECOGNIZED DRUG - CODE] PO
[2024-01-07 11:48] LABS: BASOPHILS # (AUTO) 0.1 K/uL (0.0-0.2); BASOPHILS % (AUTO) 1.1 % (0.0-2.0); EOSINOPHILS # (AUTO) 0.2 K/uL (0.0-0.7); EOSINOPHILS % (AUTO) 3.8 % (0.0-6.0); HEMATOCRIT 34 % (33-45); HEMOGLOBIN 10.5 g/dL (11.5-14.8); LYMPHOCYTES # (AUTO) 1.2 K/uL (0.8-4.8); LYMPHOCYTES % (AUTO) 19.9 % (20.0-44.0); MEAN CORPUSCULAR HEMOGLOBIN 25 PG (26.0-33.0); MEAN CORPUSCULAR HGB CONC 31 g/dl (31.0-36.0); MEAN CORPUSCULAR VOLUME 79 fL (82-100); MONOCYTES # (AUTO) 0.6 K/uL (0.1-1.30); MONOCYTES % (AUTO) 9.4 % (2.0-12.0); NEUTROPHILS % (AUTO) 65.8 % (43.0-81.0); PLATELET COUNT (AUTO) 269 K/uL (150-450); RED CELL DISTRIBUTION WIDTH 17.4 % (11.5-15.0); WHITE BLOOD COUNT (AUTO) 6.1 K/uL (4.3-11.0)
[2024-01-07 11:54] LABS: CALCIUM, SERUM 8.4 mg/dL (8.5-10.1); CARBON DIOXIDE 31 mmol/L (21-32); CHLORIDE 107 mmol/L (98-107); CREATININE 1.6 mg/dL (0.6-1.3); GLUCOSE 85 mg/dL (74-106); POTASSIUM 4.9 mmol/L (3.5-5.1); SODIUM SERUM 141 mmol/L (136-145); UREA NITROGEN, BLOOD 15 mg/dL (7-18)
[2024-01-07] MEDS ORDERED: METO-358 PO (11:59)
[2024-01-07] MEDS ORDERED: FOLI0.4T6 PO (11:59)
[2024-01-07] MEDS ORDERED: AMLO-212 PO (11:59)
[2024-01-07] MEDS ORDERED: GABA-532 PO (11:59)
[2024-01-07] MEDS ORDERED: MONT10TA22 PO (11:59)
[2024-01-07] MEDS ORDERED: MAGN400T26 PO (11:59)
[2024-01-07] MEDS ORDERED: SENN-175 PO (11:59)
[2024-01-07] MEDS ORDERED: DIVA-76 PO (11:59)
[2024-01-07] MEDS ORDERED: PANT20TA17 PO (11:59)
[2024-01-07] MEDS ORDERED: HYDR-3972 PO (11:59)
[2024-01-07] MEDS ORDERED: ISOS20TA8 PO (11:59)
[2024-01-07] MEDS ORDERED: CLOP75TA15 PO (11:59)
[2024-01-07] MEDS ORDERED: ARIP10TA9 PO (11:59)
[2024-01-07 12:00] LABS: ALANINE AMINOTRANSFERASE 17 U/L (12-78); ALKALINE PHOSPHATASE 82 U/L (46-116); ASPARTATE AMINOTRANSFERASE 18 U/L (15-37); BILIRUBIN,DIRECT 0.1 mg/dL (0.0-0.2); BILIRUBIN,TOTAL 0.4 mg/dL (0.2-1.0); TOTAL PROTEIN, SERUM 6.8 g/dL (6.4-8.2)
[2024-01-07 12:19] LABS: INR 1.09 (0.91-1.10); PARTIAL THROMBOPLASTIN TIME 31.9 SEC (24.3-34.3); PROTHROMBIN TIME 11.5 SECS (9.2-11.1)
[2024-01-07] MEDS ORDERED: IOHEXOL-300 100 ML VIAL IV ONE (12:41)
[2024-01-07] MEDS ORDERED: IV NS 0.9% 250 ML IV ONE (12:41)
[2024-01-07] MEDS ORDERED: CT SWABBABLE VALVE TRANS SET 1 EA INFUS.SET MC ONE (12:41)
[2024-01-07 13:30] VITALS: BP 158/81; TEMP 97.9; O2SAT 96
[2024-01-07 13:45] VITALS: BP 158/81; TEMP 97.9; O2SAT 97
[2024-01-07] MEDS ORDERED: Z GUARD REMEDY 4 OZ OINT TP PRN (15:30)
[2024-01-07] MEDS ORDERED: MAG HYDROX/AL HYDROX/SIMETH 30 ML UDC PO PRN (15:30)
[2024-01-07] MEDS ORDERED: MAGNESIUM HYDROXIDE 30 ML UDC PO PRN (15:30)
[2024-01-07] MEDS ORDERED: ACETAMINOPHEN 325 MG TABLET PO PRN (15:30)
[2024-01-07] MEDS ORDERED: ONDANSETRON HCL/PF 4 MG/2 ML VIAL IVP PRN (15:30)
[2024-01-07 16:00] VITALS: BP 154/79; TEMP 98; O2SAT 97
[2024-01-07] MEDS: SENNOSIDES 8.6 MG TABLET PO SCH (16:13)
[2024-01-07] MEDS: PANTOPRAZOLE 40 MG VIAL IV SCH (16:13)
[2024-01-07] MEDS: ISOSORBIDE DINITRATE (20MG) 20 MG TABLET PO SCH (16:14)
[2024-01-07] MEDS: GABAPENTIN 100 MG CAPSULE PO SCH (16:15)
[2024-01-07] MEDS: HYDROCODONE/APAP 5/325MG TABLET PO SCH (17:23)
[2024-01-07] MEDS: DIVALPROEX SODIUM 250 MG TABLET.DR PO SCH (21:29)
[2024-01-08 06:59] LABS: BASOPHILS # (AUTO) 0.1 K/uL (0.0-0.2); BASOPHILS % (AUTO) 0.7 % (0.0-2.0); EOSINOPHILS # (AUTO) 0.3 K/uL (0.0-0.7); EOSINOPHILS % (AUTO) 3.3 % (0.0-6.0); HEMATOCRIT 32 % (33-45); LYMPHOCYTES # (AUTO) 1.4 K/uL (0.8-4.8); LYMPHOCYTES % (AUTO) 18.1 % (20.0-44.0); MEAN CORPUSCULAR HEMOGLOBIN 25 PG (26.0-33.0); MEAN CORPUSCULAR HGB CONC 31 g/dl (31.0-36.0); MEAN CORPUSCULAR VOLUME 80 fL (82-100); MONOCYTES # (AUTO) 0.7 K/uL (0.1-1.30); MONOCYTES % (AUTO) 8.8 % (2.0-12.0); NEUTROPHILS # (AUTO) 5.2 K/uL (1.8-8.9); NEUTROPHILS % (AUTO) 69.1 % (43.0-81.0); PLATELET COUNT (AUTO) 234 K/uL (150-450); RED CELL DISTRIBUTION WIDTH 17.4 % (11.5-15.0); WHITE BLOOD COUNT (AUTO) 7.5 K/uL (4.3-11.0)
[2024-01-08 07:16] LABS: CALCIUM, SERUM 8.3 mg/dL (8.5-10.1); CARBON DIOXIDE 29 mmol/L (21-32); CHLORIDE 108 mmol/L (98-107); CREATININE 1.6 mg/dL (0.6-1.3); GLUCOSE 106 mg/dL (74-106); PHOSPHORUS 4.2 mg/dL (2.5-4.9); POTASSIUM 4.8 mmol/L (3.5-5.1); SODIUM SERUM 142 mmol/L (136-145); UREA NITROGEN, BLOOD 14 mg/dL (7-18)
[2024-01-08 08:00] VITALS: BP 159/80; TEMP 98.1; O2SAT 94
[2024-01-08] MEDS: OXYBUTYNIN CHLORIDE ER 5 MG TAB PO SCH (08:51)
[2024-01-08] MEDS: MONTELUKAST SODIUM (10MG) 10 MG TABLET PO SCH (08:51)
[2024-01-08] MEDS: ARIPIPRAZOLE 5 MG TABLET PO SCH (08:52)
[2024-01-08] MEDS ORDERED: PANT40TA2 PO (12:13)
[2024-01-08 16:00] VITALS: BP 159/85; TEMP 97.8; O2SAT 96
== END 2024-01-08 16:45 | DRG 377 ==
LOC: ER 11:11 → MED 12:49 → TELE 16:36 → MED 01-08 13:00
PROVIDERS: ADMIT Internal Medicine; ATTEND Nurse Practitioner Acute Care
DX: K92.1 Melena (principal); E43 Unspecified severe protein-calorie malnutrition; G93.41 Metabolic encephalopathy; F03.93 Unspecified dementia, unspecified severity, with mood disturbance; I13.0 Hypertensive heart and chronic kidney disease with heart failure and stage 1 through stage 4 chronic kidney disease, or unspecified chronic kidney disease; N17.9 Acute kidney failure, unspecified; J90 Pleural effusion, not elsewhere classified; E88.09 Other disorders of plasma-protein metabolism, not elsewhere classified; D64.9 Anemia, unspecified; E78.5 Hyperlipidemia, unspecified; I25.10 Atherosclerotic heart disease of native coronary artery without angina pectoris; I50.9 Heart failure, unspecified; N18.9 Chronic kidney disease, unspecified; Z79.01 Long term (current) use of anticoagulants; Z86.718 Personal history of other venous thrombosis and embolism; Z95.5 Presence of coronary angioplasty implant and graft; F39 Unspecified mood [affective] disorder; K80.20 Calculus of gallbladder without cholecystitis without obstruction; Z68.28 Body mass index [BMI] 28.0-28.9, adult
CPT/HCPCS: 36415; 71045-TC; 80048-TC; 80076-TC; 83605-TC; 83735-TC; 84100-TC; 85025-TC; 85730-TC; 86850-TC; 87040-TC; G0378; J2470; J7050; Q9967

== ENCOUNTER 2024-05-11 01:22 | Inpatient (IN) | payer MEDICARE, OTHER ==
[~2024-05-11] VITALS: Ht 172.7 cm; Wt 81.6 kg
[~2024-05-11 01:22] MED LIST changes: +AMLO-212 PO; +ARIP10TA9 PO; -BRIM5DRO3 EACHEYE; -CARB15DR EACHEYE; -CEPH250C PO; +CLOP75TA15 PO; -DEEP SEA 0.65% BNOSTRILS; -DIPH1TAB PO; +DIVA-76 PO; -EMPA10TA PO; +FOLI0.4T6 PO; -FURO20TA4 PO; +GABA-532 PO; +HYDR-3972 PO; +ISOS20TA8 PO; -KETO15CR2 TP; -LORA-259 PO; +MAGN400T26 PO; +METO-358 PO; -METO200T49 PO; +MONT10TA22 PO; -OLME20TA23 PO; +PANT40TA2 PO; -PANT40TA49 PO; -RISP0.5T65 PO; +SENN-175 PO; -SERT50TA PO; -SODI10PO PO
[2024-05-11] MEDS: IV NS 0.9% 1,000 ML BAG IV ONE ×2 (02:00→04:30)
[2024-05-11 02:19] LABS: BASOPHILS # (AUTO) 0.1 K/uL (0.0-0.2); BASOPHILS % (AUTO) 1.1 % (0.0-2.0); EOSINOPHILS # (AUTO) 0.3 K/uL (0.0-0.7); EOSINOPHILS % (AUTO) 4.5 % (0.0-6.0); HEMATOCRIT 37 % (33-45); LYMPHOCYTES # (AUTO) 1.5 K/uL (0.8-4.8); LYMPHOCYTES % (AUTO) 23.4 % (20.0-44.0); MEAN CORPUSCULAR HEMOGLOBIN 26 PG (26.0-33.0); MEAN CORPUSCULAR HGB CONC 32 g/dl (31.0-36.0); MEAN CORPUSCULAR VOLUME 79 fL (82-100); MONOCYTES # (AUTO) 0.7 K/uL (0.1-1.30); MONOCYTES % (AUTO) 10.5 % (2.0-12.0); NEUTROPHILS # (AUTO) 3.9 K/uL (1.8-8.9); NEUTROPHILS % (AUTO) 60.5 % (43.0-81.0); PLATELET COUNT (AUTO) 165 K/uL (150-450); RED BLOOD CELL COUNT(AUTO) 4.71 MIL/uL (4.0-5.2); RED CELL DISTRIBUTION WIDTH 17.5 % (11.5-15.0); WHITE BLOOD COUNT (AUTO) 6.4 K/uL (4.3-11.0)
[2024-05-11 02:51] LABS: CARBON DIOXIDE 31 mmol/L (21-32); CHLORIDE 102 mmol/L (98-107); CREATININE 2.5 mg/dL (0.6-1.3); GLUCOSE 89 mg/dL (74-106); POTASSIUM 4.9 mmol/L (3.5-5.1); SODIUM SERUM 137 mmol/L (136-145); UREA NITROGEN, BLOOD 58 mg/dL (7-18)
[2024-05-11 02:51] LABS: APPEARANCE,URINE CLEAR (CLEAR); BILIRUBIN,URINE NEGATIVE (NEGATIVE); BLOOD, URINE NEGATIVE Ery/uL (NEGATIVE); COLOR,URINE YELLOW (YELLOW); KETONES,URINE NEGATIVE (NEGATIVE); LEUKOCYTE ESTERASE ,URINE NEGATIVE (NEGATIVE); NITRITE, URINE NEGATIVE (NEGATIVE); PH,URINE 6.5 (5.0-8.0); PROTEIN,URINE NEGATIVE (NEGATIVE); UGLUCOSE NEGATIVE (NEGATIVE); UROBILINOGEN,URINE 0.2 EU/dL (0.2)
[2024-05-11 03:04] LABS: ALANINE AMINOTRANSFERASE 10 U/L (12-78); ALBUMIN 3.5 g/dL (3.4-5.0); ALKALINE PHOSPHATASE 85 U/L (46-116); ASPARTATE AMINOTRANSFERASE 14 U/L (15-37); BILIRUBIN,DIRECT 0.1 mg/dL (0.0-0.2); BILIRUBIN,TOTAL 0.6 mg/dL (0.2-1.0); TOTAL PROTEIN, SERUM 7.4 g/dL (6.4-8.2)
[2024-05-11] MEDS ORDERED: ONDANSETRON HCL/PF 4 MG/2 ML VIAL IVP PRN (06:30)
[2024-05-11] MEDS ORDERED: Z GUARD REMEDY 4 OZ OINT TP PRN (06:30)
[2024-05-11] MEDS ORDERED: ACETAMINOPHEN 325 MG TABLET PO PRN ×2 (06:30→11:30)
[2024-05-11] MEDS ORDERED: HYDR453.3 TP (07:59)
[2024-05-11] MEDS ORDERED: MAGN500C16 PO (07:59)
[2024-05-11] MEDS ORDERED: CELE200C PO (07:59)
[2024-05-11] MEDS ORDERED: BRIM5DRO11 EACHEYE (07:59)
[2024-05-11] MEDS ORDERED: DICL100G26 TP (07:59)
[2024-05-11] MEDS ORDERED: LOPE2TAB25 PO (07:59)
[2024-05-11] MEDS ORDERED: ACET-2030 PO (07:59)
[2024-05-11] MEDS ORDERED: PANT20TA2 PO (07:59)
[2024-05-11] MEDS: PANTOPRAZOLE 40 MG VIAL IV SCH (09:10)
[2024-05-11 10:14] LABS: BASOPHILS # (AUTO) 0.1 K/uL (0.0-0.2); EOSINOPHILS # (AUTO) 0.3 K/uL (0.0-0.7); EOSINOPHILS % (AUTO) 3.7 % (0.0-6.0); HEMATOCRIT 42 % (33-45); LYMPHOCYTES # (AUTO) 1.5 K/uL (0.8-4.8); LYMPHOCYTES % (AUTO) 21.2 % (20.0-44.0); MEAN CORPUSCULAR HEMOGLOBIN 25 PG (26.0-33.0); MEAN CORPUSCULAR HGB CONC 31 g/dl (31.0-36.0); MEAN CORPUSCULAR VOLUME 79 fL (82-100); MONOCYTES # (AUTO) 0.6 K/uL (0.1-1.30); MONOCYTES % (AUTO) 9.2 % (2.0-12.0); NEUTROPHILS # (AUTO) 4.6 K/uL (1.8-8.9); NEUTROPHILS % (AUTO) 64.9 % (43.0-81.0); PLATELET COUNT (AUTO) 188 K/uL (150-450); RED CELL DISTRIBUTION WIDTH 17.8 % (11.5-15.0); WHITE BLOOD COUNT (AUTO) 7.1 K/uL (4.3-11.0)
[2024-05-11 10:27] LABS: PROTHROMBIN TIME 10.6 SECS (9.2-11.1)
[2024-05-11 10:32] LABS: ALANINE AMINOTRANSFERASE 12 U/L (12-78); ALBUMIN 3.9 g/dL (3.4-5.0); ALKALINE PHOSPHATASE 100 U/L (46-116); ASPARTATE AMINOTRANSFERASE 18 U/L (15-37); BILIRUBIN,DIRECT 0.1 mg/dL (0.0-0.2); BILIRUBIN,TOTAL 0.4 mg/dL (0.2-1.0); CALCIUM, SERUM 9.1 mg/dL (8.5-10.1); CARBON DIOXIDE 32 mmol/L (21-32); CHLORIDE 105 mmol/L (98-107); CREATININE 2.2 mg/dL (0.6-1.3); GLUCOSE 78 mg/dL (74-106); MAGNESIUM 3.5 mg/dL (1.8-2.4); PHOSPHORUS 4.7 mg/dL (2.5-4.9); SODIUM SERUM 141 mmol/L (136-145); TOTAL PROTEIN, SERUM 8.3 g/dL (6.4-8.2); UREA NITROGEN, BLOOD 51 mg/dL (7-18)
[2024-05-11] MEDS: HYDROCODONE/APAP 5/325MG TABLET PO SCH (12:30)
[2024-05-11] MEDS: ARIPIPRAZOLE 5 MG TABLET PO SCH (12:31)
[2024-05-11] MEDS: AMLODIPINE BESYLATE 5 MG TABLET PO SCH (12:32)
[2024-05-11] MEDS: METOPROLOL SUCCINATE 50 MG TAB.SR.24H PO SCH (12:32)
[2024-05-11] MEDS: MONTELUKAST SODIUM (10MG) 10 MG TABLET PO SCH (12:32)
[2024-05-11] MEDS: BRIMONIDINE TARTRATE OPHT SOLN 5 ML BOTTLE EACHEYE SCH (12:38)
[2024-05-11] MEDS: SENNOSIDES 8.6 MG TABLET PO SCH (16:57)
[2024-05-11] MEDS: ISOSORBIDE DINITRATE (20MG) 20 MG TABLET PO SCH (16:58)
[2024-05-11] MEDS: APIXABAN 2.5 MG TABLET PO SCH (16:59)
[2024-05-11] MEDS: HYDROCORTISONE 2.5% CREAM 28.4 GM TUBE TP SCH (16:59)
[2024-05-11] MEDS: ACETAMINOPHEN ES 500 MG TABLET PO SCH (17:02)
[2024-05-11] MEDS: IV NS 0.9% 1,000 ML IV PRN (18:38)
[2024-05-11] MEDS: MIRTAZAPINE 15 MG TABLET PO SCH (21:40)
[2024-05-11 22:45] VITALS: BP 142/63; TEMP 98.2; O2SAT 94
[2024-05-12] VITALS: BP 166/82; TEMP 98.4; O2SAT 98
[2024-05-12 04:56] VITALS: BP 166/82; TEMP 98.6; O2SAT 61
[2024-05-12 07:20] LABS: BASOPHILS # (AUTO) 0.1 K/uL (0.0-0.2); BASOPHILS % (AUTO) 0.9 % (0.0-2.0); EOSINOPHILS # (AUTO) 0.2 K/uL (0.0-0.7); HEMATOCRIT 39 % (33-45); HEMOGLOBIN 12.3 g/dL (11.5-14.8); LYMPHOCYTES # (AUTO) 1.2 K/uL (0.8-4.8); LYMPHOCYTES % (AUTO) 18.1 % (20.0-44.0); MEAN CORPUSCULAR HEMOGLOBIN 25 PG (26.0-33.0); MEAN CORPUSCULAR HGB CONC 31 g/dl (31.0-36.0); MEAN CORPUSCULAR VOLUME 80 fL (82-100); MONOCYTES # (AUTO) 0.6 K/uL (0.1-1.30); MONOCYTES % (AUTO) 8.5 % (2.0-12.0); NEUTROPHILS # (AUTO) 4.7 K/uL (1.8-8.9); NEUTROPHILS % (AUTO) 69.5 % (43.0-81.0); PLATELET COUNT (AUTO) 166 K/uL (150-450); RED BLOOD CELL COUNT(AUTO) 4.94 MIL/uL (4.0-5.2); RED CELL DISTRIBUTION WIDTH 18.1 % (11.5-15.0); WHITE BLOOD COUNT (AUTO) 6.7 K/uL (4.3-11.0)
[2024-05-12 07:58] LABS: ALBUMIN 3.3 g/dL (3.4-5.0); BILIRUBIN,TOTAL 0.3 mg/dL (0.2-1.0); CALCIUM, SERUM 9.2 mg/dL (8.5-10.1); CREATININE 1.7 mg/dL (0.6-1.3); MAGNESIUM 2.8 mg/dL (1.8-2.4); PHOSPHORUS 4.5 mg/dL (2.5-4.9); POTASSIUM 5.4 mmol/L (3.5-5.1); TOTAL PROTEIN, SERUM 7.4 g/dL (6.4-8.2)
[2024-05-12 08:00] VITALS: BP 170/73; TEMP 98.1; O2SAT 94
[2024-05-12] MEDS: OXYBUTYNIN CHLORIDE ER 5 MG TAB PO SCH (09:17)
[2024-05-12] MEDS: CLOPIDOGREL BISULFATE 75 MG TABLET PO SCH (09:17)
[2024-05-12 12:00] VITALS: BP 110/56; TEMP 98.1; O2SAT 98
[2024-05-12] MEDS: ALBUTEROL FS 2.5 MG/3 ML VIAL.NEB NEB ONE (13:30)
[2024-05-12] MEDS: SODIUM POLYSTYRENE SULFONATE 15 G/60 ML BOTTLE PO ONE (13:56)
[2024-05-12] MEDS: SODIUM ZIRCONIUM CYCLOSILICATE 10 GM POWD.PACK PO ONE (13:56)
[2024-05-12 19:15] LABS: CALCIUM, SERUM 8.5 mg/dL (8.5-10.1); CREATININE 1.7 mg/dL (0.6-1.3); POTASSIUM 5.1 mmol/L (3.5-5.1)
[2024-05-12 20:00] VITALS: BP 168/83; TEMP 98.2; O2SAT 94
[2024-05-13] VITALS (7 sets, daily range): BP systolic 127–187; BP diastolic 68–83; TEMP 97.5–98.4; O2SAT 94–98
[2024-05-13] MEDS: CLONIDINE HCL 0.1 MG TABLET PO PRN (04:36)
[2024-05-13 07:11] LABS: CALCIUM, SERUM 8.7 mg/dL (8.5-10.1); CREATININE 1.4 mg/dL (0.6-1.3); POTASSIUM 4.6 mmol/L (3.5-5.1)
[2024-05-13 13:12] LABS: PTH, INTACT 36 pg/mL (15-65)
[2024-05-13] MEDS: IV 1/2NS 1000 ML 1,000 ML IV PRN (13:59)
[2024-05-14] VITALS: BP 161/70; TEMP 97.9; O2SAT 99
[2024-05-14 04:00] VITALS: BP 158/90; TEMP 98.4; O2SAT 96
[2024-05-14 06:59] LABS: BASOPHILS # (AUTO) 0.1 K/uL (0.0-0.2); BASOPHILS % (AUTO) 0.8 % (0.0-2.0); EOSINOPHILS # (AUTO) 0.3 K/uL (0.0-0.7); EOSINOPHILS % (AUTO) 3.3 % (0.0-6.0); HEMATOCRIT 40 % (33-45); HEMOGLOBIN 12.4 g/dL (11.5-14.8); LYMPHOCYTES # (AUTO) 0.9 K/uL (0.8-4.8); LYMPHOCYTES % (AUTO) 10.9 % (20.0-44.0); MEAN CORPUSCULAR HEMOGLOBIN 25 PG (26.0-33.0); MEAN CORPUSCULAR HGB CONC 31 g/dl (31.0-36.0); MEAN CORPUSCULAR VOLUME 81 fL (82-100); MONOCYTES # (AUTO) 0.7 K/uL (0.1-1.30); MONOCYTES % (AUTO) 8.6 % (2.0-12.0); NEUTROPHILS # (AUTO) 6.5 K/uL (1.8-8.9); NEUTROPHILS % (AUTO) 76.4 % (43.0-81.0); PLATELET COUNT (AUTO) 145 K/uL (150-450); RED BLOOD CELL COUNT(AUTO) 4.92 MIL/uL (4.0-5.2); RED CELL DISTRIBUTION WIDTH 17.7 % (11.5-15.0); WHITE BLOOD COUNT (AUTO) 8.4 K/uL (4.3-11.0)
[2024-05-14 07:44] LABS: CALCIUM, SERUM 9.3 mg/dL (8.5-10.1); CREATININE 1.4 mg/dL (0.6-1.3); MAGNESIUM 2.1 mg/dL (1.8-2.4); PHOSPHORUS 3.7 mg/dL (2.5-4.9); POTASSIUM 4.6 mmol/L (3.5-5.1)
[2024-05-14 08:00] VITALS: BP 139/74; TEMP 98.1; O2SAT 97
[2024-05-14] MEDS: POLYETHYLENE GLYCOL 3350 17 GM POWD.PACK PO ONE (10:49)
[2024-05-14] MEDS: DOCUSATE SODIUM 100 MG CAPSULE PO SCH (10:49)
[2024-05-14] MEDS ORDERED: DOCU100C36 PO (11:03)
[2024-05-14 12:00] VITALS: BP 155/74; TEMP 97.9; O2SAT 99
[2024-05-14 12:21] VITALS: BP 155/74
[2024-05-15 06:11] LABS: *SPE ALBUMIN 3.4 g/dL (2.9-4.4); *SPE ALPHA-1-GLOBULIN 0.2 g/dL (0.0-0.4); *SPE ALPHA-2-GLOBULIN 0.6 g/dL (0.4-1.0); *SPE BETA GLOBULIN 1.1 g/dL (0.7-1.3); *SPE GLOBULIN, TOTAL 3.3 g/dL (2.2-3.9); *SPE M-SPIKE Not Observed g/dL (Not Observed); *SPE PROTEIN TOTAL 6.7 g/dL (6.0-8.5); *SPEGAMMA GLOBULIN 1.4 g/dL (0.4-1.8)
== END 2024-05-14 15:58 | DRG 682 ==
LOC: ER 01:48 → TELE 05:06
PROVIDERS: ADMIT Nurse Practitioner Acute Care; ATTEND Student in an Organized Health Care Education/Training Program
DX: N17.0 Acute kidney failure with tubular necrosis (principal); G93.41 Metabolic encephalopathy; D68.59 Other primary thrombophilia; F03.93 Unspecified dementia, unspecified severity, with mood disturbance; E87.0 Hyperosmolality and hypernatremia; K92.1 Melena; I13.0 Hypertensive heart and chronic kidney disease with heart failure and stage 1 through stage 4 chronic kidney disease, or unspecified chronic kidney disease; E86.0 Dehydration; E78.5 Hyperlipidemia, unspecified; E87.5 Hyperkalemia; F32.A Depression, unspecified; H40.9 Unspecified glaucoma; I25.10 Atherosclerotic heart disease of native coronary artery without angina pectoris; M19.90 Unspecified osteoarthritis, unspecified site; N18.9 Chronic kidney disease, unspecified; Z86.718 Personal history of other venous thrombosis and embolism; Z86.73 Personal history of transient ischemic attack (TIA), and cerebral infarction without residual deficits; Z79.01 Long term (current) use of anticoagulants; N32.81 Overactive bladder; Z74.09 Other reduced mobility; F39 Unspecified mood [affective] disorder; I50.9 Heart failure, unspecified; Z95.5 Presence of coronary angioplasty implant and graft
CPT/HCPCS: 36415; 76770-TC; 80048-TC; 80053-TC; 80076-TC; 82550-TC; 83735-TC; 83970; 84100-TC; 84155; 84165; 84484-TC; 85025-TC; 85610-TC; 97110-TC; 97530-TC; A4223; G0378; J2470; J3490; J7030